=== PATIENT | female | born 2000 | race African-American/Black ===

== ENCOUNTER 2018-09-20 05:33 | Emergency (ER) | payer OTHER ==
[~2018-09-20] VITALS: Ht 165.1 cm; Wt 54.5 kg
[2018-09-20 06:18] LABS: HCG UR SG 1.016 (1.003-1.030); MICROSCOPIC AUTO
[2018-09-20 06:19] LABS: CULTURE INDICATED? YES
[2018-09-20 06:37] LABS: MEAN CORPUSCULAR HEMOGLOBIN 32.6 pg (27.0-34.8); MEAN CORPUSCULAR HGB CONC 34.1 g/dL (32.4-35.8); MEAN CORPUSCULAR VOLUME 95.6 fL (80-100); MEAN PLATELET VOLUME 7.1 fL (7.4-10.4); PLATELET COUNT 354 x10^3/uL (130-400); RED BLOOD COUNT 4.16 x10^6/uL (3.82-5.3); RED CELL DISTRIBUTION WIDTH 15.6 % (9.6-15.2)
[2018-09-20 06:50] LABS: BASOPHILS # (AUTO) 0.03 x10^3/uL (0-0.3); BASOPHILS % (AUTO) 1 % (0-1); EOSINOPHILS # (AUTO) 0.16 x10^3/uL (0-0.8); EOSINOPHILS % (AUTO) 2 % (1-7); LYMPHOCYTES # (AUTO) 1.94 x10^3/uL (1-6.1); LYMPHOCYTES % (AUTO) 28 % (22-44); MD SCAN; MONOCYTES # (AUTO) 0.19 x10^3/uL (0-1.4); MONOCYTES % (AUTO) 3 % (2-9); NEUTROPHILS # (AUTO) 4.54 x10^3/uL (1.8-8.0); NEUTROPHILS % (AUTO) 66 % (42-75)
[2018-09-20] MEDS ORDERED: CEFTRIAXONE 250 MG IM ONE (07:30)
[2018-09-20] MEDS ORDERED: AZITHROMYCIN 500 MG TABLET PO ONE (07:30)
[2018-09-20 07:44] LABS: CLUE CELLS PRESENT (NONE SEEN); WET PREP WBCS FEW (FEW)
[2018-09-20] MEDS ORDERED: CEFTRIAXONE 250 MG ONE (08:09)
[2018-09-20] MEDS ORDERED: AZITHROMYCIN 250 MG TABLET ONE (08:11)
[2018-09-20] MEDS ORDERED: LIDOCAINE-MPF 1%, 5ML ONE (08:13)
[2018-09-20 08:37] VITALS: BP 96/64
== END 2018-09-20 08:41 | disposition home or self-care (01) ==
LOC: ED 06:26
DX: N83.291 Other ovarian cyst, right side (principal); N76.0 Acute vaginitis; B96.89 Other specified bacterial agents as the cause of diseases classified elsewhere; F17.200 Nicotine dependence, unspecified, uncomplicated; R05 Cough
CPT/HCPCS: 36415; 71046; 76830; 81001; 81025; 85025; 87086; 87210; 87491; 87591; 87808; 96372; 99285; J0696

== ENCOUNTER 2019-02-06 20:42 | Emergency (ER) | payer OTHER, MEDICAID ==
[~2019-02-06] VITALS: Ht 167.6 cm; Wt 58.0 kg
[2019-02-06 20:50] VITALS: BP 132/90
--- NOTE | 2019-02-06 21:20 | NUR ---
POC DISCUSSED. PT REQUESTING WATER. PT GIVEN MULTIPLE CUPS OF WATER AND ICE PER REQUEST. PT DENIES FURTHER NEEDS AT THIS TIME. CALL LIGHT ON LAP.
[2019-02-06 21:37] LABS: CULTURE INDICATED? YES; MICROSCOPIC INDICATED
[2019-02-06 21:45] LABS: HCG UR SG 1.035 (1.003-1.030)
--- NOTE | 2019-02-06 22:01 | NUR ---
PT GIVEN SOCKS AND A WARM BLANKET PER REQUEST. POC DISCUSSED. PT AWARE TBDC. PT DENIES FURTHER NEEDS AT THIS TIME.
--- NOTE | 2019-02-06 22:30 | NUR ---
PT NOT IN ROOM AT THIS TIME. SEARCH OF HALLWAYS AND BATHROOMS FOUND NO PT. PA INFORMED.
== END 2019-02-06 22:48 | disposition left against medical advice (07) ==
LOC: ED 22:00
DX: F10.129 Alcohol abuse with intoxication, unspecified (principal); N39.0 Urinary tract infection, site not specified
CPT/HCPCS: 81001; 81025; 87086; 99283

== ENCOUNTER 2019-02-23 23:31 | Emergency (ER) | payer OTHER, MEDICAID ==
[~2019-02-23] VITALS: Ht 165.1 cm; Wt 53.4 kg
[2019-02-23 23:38] VITALS: BP 121/72
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
[2019-02-23] MEDS ORDERED: DIPH,PERTUSS(ACELL),TET VAC/PF 0.5 ML IM-VACC ONE (23:51)
[2019-02-23] MEDS ORDERED: LIDOCAINE 1%-EPI 1:100K, 20ML ONE (23:52)
[2019-02-24] MEDS ORDERED: LIDOCAINE 1%-EPI 1:100K, 20ML SQ ONE
[2019-02-24] MEDS ORDERED: DIPH,PERTUSS(ACELL),TET VAC/PF 0.5 ML IM-VACC ONE
[2019-02-24] MEDS ORDERED: BACITRACIN ZINC OINT 500U/GM, 0.9 GM ONE (00:34)
[2019-02-24] MEDS ORDERED: CEPHALEXIN 500 MG CAPSULE ONE (00:47)
[2019-02-24] MEDS ORDERED: CEPHALEXIN 500 MG CAPSULE PO ONE (01:00)
[2019-02-24] MEDS ORDERED: HYDROcodone/APAP 5/325 TABLET ONE (01:04)
[2019-02-24] MEDS ORDERED: HYDROcodone/APAP 5/325 TABLET PO STA (01:06)
== END 2019-02-24 01:09 | disposition home or self-care (01) ==
LOC: ED 23:59
DX: S61.412A Laceration without foreign body of left hand, initial encounter (principal); S60.551A Superficial foreign body of right hand, initial encounter; F17.210 Nicotine dependence, cigarettes, uncomplicated; X58.XXXA Exposure to other specified factors, initial encounter; Y93.89 Activity, other specified; Y92.413 State road as the place of occurrence of the external cause; Y99.8 Other external cause status
CPT/HCPCS: 12042; 90471; 90715; 99284

== ENCOUNTER 2019-05-25 02:48 | Emergency (ER) | payer OTHER, MEDICAID ==
[~2019-05-25] VITALS: Ht 165.1 cm; Wt 57.4 kg
--- NOTE | 2019-05-25 03:22 | NUR ---
PT. AMBULATORY TO BR WITH STEADY GAIT TO PROVIDE URINE SAMPLE.
[2019-05-25] MEDS ORDERED: CEFTRIAXONE 250 MG ONE (03:24)
[2019-05-25] MEDS ORDERED: AZITHROMYCIN 250 MG TABLET ONE (03:24)
[2019-05-25] MEDS ORDERED: AZITHROMYCIN 500 MG TABLET PO ONE (03:30)
[2019-05-25] MEDS ORDERED: CEFTRIAXONE 250 MG IM ONE (03:30)
[2019-05-25 03:37] LABS: BASOPHILS # (AUTO) 0.08 x10^3/uL (0-0.1); BASOPHILS % (AUTO) 1 % (0-1); EOSINOPHILS # (AUTO) 0.22 x10^3/uL (0-0.4); EOSINOPHILS % (AUTO) 3 % (1-7); LYMPHOCYTES # (AUTO) 2.32 x10^3/uL (1-3.4); LYMPHOCYTES % (AUTO) 31 % (22-44); MD NO; MEAN CORPUSCULAR HEMOGLOBIN 32.8 pg (27.0-34.8); MEAN CORPUSCULAR HGB CONC 33.3 g/dL (32.4-35.8); MEAN CORPUSCULAR VOLUME 98.4 fL (80-100); MONOCYTES # (AUTO) 0.43 x10^3/uL (0.2-0.8); MONOCYTES % (AUTO) 6 % (2-9); NEUTROPHILS # (AUTO) 4.41 x10^3/uL (1.8-6.8); NEUTROPHILS % (AUTO) 59 % (42-75); PLATELET COUNT 343 x10^3/uL (130-400); RED BLOOD COUNT 4.13 x10^6/uL (3.82-5.3); RED CELL DISTRIBUTION WIDTH 14.4 % (9.6-15.2)
--- NOTE | 2019-05-25 03:40 | NUR ---
PT. MEDICATED PER MAR. LABS WERE DRAWN. URINE SENT TO LAB. READY FOR PELVIC EXAM.
[2019-05-25 03:46] LABS: ANION GAP 7 mmol/L (5-15); CALCIUM 8.7 mg/dL (8.5-10.1); CHLORIDE 106 mmol/L (98-107)
[2019-05-25 03:46] LABS: HCG UR SG 1.019 (1.003-1.030); MICROSCOPIC NOT IND
[2019-05-25 03:47] LABS: ALBUMIN 3.9 g/dL (3.4-5.0)
[2019-05-25 03:47] LABS: CULTURE INDICATED? NO
--- NOTE | 2019-05-25 03:50 | NUR ---
WESLEY GARCIA AT BS FOR PELVIC EXAM.
[2019-05-25 05:15] VITALS: BP 106/64
== END 2019-05-25 05:18 | disposition home or self-care (01) ==
LOC: ED 04:02
DX: O98.312 Other infections with a predominantly sexual mode of transmission complicating pregnancy, second trimester (principal); Z3A.01 Less than 8 weeks gestation of pregnancy; F17.200 Nicotine dependence, unspecified, uncomplicated
CPT/HCPCS: 36415; 80048; 81003; 81025; 82040; 85025; 86592; 87491; 87591; 96372; 99283; J0696

== ENCOUNTER 2019-08-03 13:25 | Emergency (ER) | payer OTHER, MEDICAID ==
[~2019-08-03] VITALS: Ht 165.1 cm; Wt 54.0 kg
[2019-08-03 14:25] LABS: BASOPHILS # (AUTO) 0.03 x10^3/uL (0-0.1); BASOPHILS % (AUTO) 1 % (0-1); EOSINOPHILS # (AUTO) 0.09 x10^3/uL (0-0.4); EOSINOPHILS % (AUTO) 2 % (1-7); LYMPHOCYTES # (AUTO) 1.06 x10^3/uL (1-3.4); LYMPHOCYTES % (AUTO) 21 % (22-44); MD NO; MEAN CORPUSCULAR HEMOGLOBIN 33.6 pg (27.0-34.8); MEAN CORPUSCULAR HGB CONC 34.4 g/dL (32.4-35.8); MEAN CORPUSCULAR VOLUME 97.7 fL (80-100); MEAN PLATELET VOLUME 6.8 fL (7.4-10.4); MONOCYTES # (AUTO) 0.24 x10^3/uL (0.2-0.8); MONOCYTES % (AUTO) 5 % (2-9); NEUTROPHILS # (AUTO) 3.64 x10^3/uL (1.8-6.8); NEUTROPHILS % (AUTO) 72 % (42-75); PLATELET COUNT 329 x10^3/uL (130-400); RED BLOOD COUNT 3.88 x10^6/uL (3.82-5.3); RED CELL DISTRIBUTION WIDTH 12.6 % (9.6-15.2)
--- NOTE | 2019-08-03 14:28 | NUR ---
PT PRESENTS TO ED WITH C/O N/V AND UTERINE CRAMPING/PAIN PRESENT FOR LAST 6 WEEKS. PT IS NAUSEATED BUT NOT VOMITING AT THIS TIME. PT DENIES VAGINAL BLEEDING OR DISCHARGE. PT A&O, RESPS EVEN AND UNLABORED. PT INSTRUCTED TO PROVIDE CLEAN CATCH UA, SUPPLIES PROVIDED. PT UP TO BATHROOM AT THIS TIME, GAIT STEADY.
[2019-08-03 14:34] LABS: ALANINE AMINOTRANSFERASE 14 U/L (12-78); ALBUMIN 3.4 g/dL (3.4-5.0); ANION GAP 7 mmol/L (5-15); CALCIUM 8.7 mg/dL (8.5-10.1); CHLORIDE 106 mmol/L (98-107); CREATININE 0.75 mg/dL (0.55-1.02)
[2019-08-03 14:37] LABS: ALKALINE PHOSPHATASE 48 U/L (45-117); BILIRUBIN,TOTAL 0.5 mg/dL (0.2-1.0); TOTAL PROTEIN 7.3 g/dL (6.4-8.2)
--- NOTE | 2019-08-03 14:45 | NUR ---
report given to GARCÍA Badillo.
[2019-08-03 14:47] LABS: CULTURE INDICATED? NO; MICROSCOPIC NOT IND
[2019-08-03 15:02] VITALS: BP 97/68
--- NOTE | 2019-08-03 15:02 | NUR ---
patient has been cleared for discharge. no noted acute distress. ambulatory without complications to waiting room. patient verbalized understanding of follow up care and self care at home.
== END 2019-08-03 15:05 | disposition home or self-care (01) ==
LOC: ED 14:19
DX: O21.9 Vomiting of pregnancy, unspecified (principal); Z3A.13 13 weeks gestation of pregnancy
CPT/HCPCS: 36415; 80053; 81003; 83690; 85025; 99283

== ENCOUNTER 2019-11-03 21:18 | Emergency (ER) | payer OTHER, MEDICAID ==
[~2019-11-03] VITALS: Ht 167.6 cm; Wt 59.9 kg
[2019-11-03] MEDS ORDERED: PREN1TAB60 PO (22:35)
== END 2019-11-03 21:32 | disposition home or self-care (01) ==
LOC: ED 21:23
DX: Z02.9 Encounter for administrative examinations, unspecified (principal)

== ENCOUNTER 2019-11-03 21:44 | Observation (INO) | payer OTHER, MEDICAID ==
[~2019-11-03] VITALS: Ht 167.6 cm; Wt 60.0 kg
[2019-11-03 22:35] LABS: AMPHETAMINE SCREEN, URINE Negative (Negative); BARBITURATE SCREEN, URINE Negative (Negative); BENZODIAZEPINE SCREEN, URINE Negative (Negative); CANNABINOID SCREEN, URINE Positive (Negative); COCAINE SCREEN, URINE Negative (Negative); METHADONE SCREEN, URINE Negative (Negative); OPIATE SCREEN, URINE Negative (Negative)
[2019-11-03] MEDS ORDERED: PREN1TAB60 PO (22:35)
[2019-11-03 22:38] LABS: MICROSCOPIC INDICATED
[2019-11-03] MEDS ORDERED: ONDANSETRON 2MG/ML, 2ML IVPush PRN (23:00)
[2019-11-03] MEDS ORDERED: PLEASE ENTER HEIGHT AND WEIGHT MC SCH (23:00)
[2019-11-03] MEDS ORDERED: LACTATED RINGERS 1,000 ML IV SCH (23:00)
[2019-11-03] MEDS ORDERED: LACTATED RINGERS 1,000 ML IVBOLUS ONE (23:00)
[2019-11-03 23:02] LABS: BASOPHILS # (AUTO) 0.02 x10^3/uL (0-0.1); BASOPHILS % (AUTO) 0 % (0-1); EOSINOPHILS # (AUTO) 0.14 x10^3/uL (0-0.4); EOSINOPHILS % (AUTO) 2 % (1-7); LYMPHOCYTES # (AUTO) 1.67 x10^3/uL (1-3.4); LYMPHOCYTES % (AUTO) 27 % (22-44); MD NO; MEAN CORPUSCULAR HEMOGLOBIN 33.1 pg (27.0-34.8); MEAN CORPUSCULAR HGB CONC 33.5 g/dL (32.4-35.8); MEAN CORPUSCULAR VOLUME 98.8 fL (80-100); MEAN PLATELET VOLUME 6.6 fL (7.4-10.4); MONOCYTES # (AUTO) 0.46 x10^3/uL (0.2-0.8); MONOCYTES % (AUTO) 7 % (2-9); NEUTROPHILS # (AUTO) 3.99 x10^3/uL (1.8-6.8); NEUTROPHILS % (AUTO) 64 % (42-75); PLATELET COUNT 350 x10^3/uL (130-400); RED BLOOD COUNT 3.27 x10^6/uL (3.82-5.3); RED CELL DISTRIBUTION WIDTH 13.5 % (9.6-15.2)
[2019-11-03 23:10] LABS: ALBUMIN 2.7 g/dL (3.4-5.0); ANION GAP 6 mmol/L (5-15); CALCIUM 8.6 mg/dL (8.5-10.1); CHLORIDE 109 mmol/L (98-107)
[2019-11-03 23:14] LABS: ALANINE AMINOTRANSFERASE 19 U/L (12-78); ALKALINE PHOSPHATASE 68 U/L (45-117); BILIRUBIN,TOTAL 0.2 mg/dL (0.2-1.0); CREATININE 0.68 mg/dL (0.55-1.02); TOTAL PROTEIN 6.4 g/dL (6.4-8.2)
[2019-11-03] MEDS ORDERED: TERBUTALINE 1 MG/ML, 1ML ONE (23:56)
[2019-11-03] MEDS ORDERED: ONDANSETRON 2MG/ML, 2ML ONE (23:56)
[2019-11-04] MEDS ORDERED: TERBUTALINE 1 MG/ML, 1ML SQ ONE
[2019-11-04] MEDS ORDERED: TERBUTALINE 1 MG/ML, 1ML IV ONE (00:30)
[2019-11-04] MEDS ORDERED: ACETAMINOPHEN 325 MG TABLET ONE (00:43)
[2019-11-04 00:46] VITALS: BP 104/60
[2019-11-04] MEDS ORDERED: ACETAMINOPHEN 325 MG TABLET PO ONE (01:00)
== END 2019-11-04 01:28 | disposition home or self-care (01) ==
LOC: LDOP 21:44 → LDIP 23:30 → UNDOADMOB 11-04
PROVIDERS: ADMIT Obstetrics & Gynecology; ATTEND Obstetrics & Gynecology
DX: O21.2 Late vomiting of pregnancy (principal); Z3A.26 26 weeks gestation of pregnancy; Z79.899 Other long term (current) drug therapy
CPT/HCPCS: 36415; 80053; 80307; 81001; 85025; 87086; 96360; 96361; 96374; 96375; 99211; G0378; J2405; J3105; J7120; G0463

== ENCOUNTER 2019-12-15 14:18 | Outpatient (CLI) | payer OTHER, MEDICAID ==
[~2019-12-15] VITALS: Ht 165.1 cm; Wt 57.7 kg
[~2019-12-15 14:18] MED LIST: PREN1TAB60 PO
[2019-12-15 15:13] LABS: MICROSCOPIC INDICATED
[2019-12-15 15:14] LABS: AMPHETAMINE SCREEN, URINE Negative (Negative); BARBITURATE SCREEN, URINE Negative (Negative); BENZODIAZEPINE SCREEN, URINE Negative (Negative); CANNABINOID SCREEN, URINE Positive (Negative); COCAINE SCREEN, URINE Negative (Negative); METHADONE SCREEN, URINE Negative (Negative); OPIATE SCREEN, URINE Negative (Negative)
[2019-12-15 15:23] VITALS: BP 106/57
[2019-12-15 15:52] LABS: ALANINE AMINOTRANSFERASE 16 U/L (12-78); ALBUMIN 2.8 g/dL (3.4-5.0); ANION GAP 8 mmol/L (5-15); CALCIUM 8.3 mg/dL (8.5-10.1); CHLORIDE 108 mmol/L (98-107); CREATININE 0.67 mg/dL (0.55-1.02)
[2019-12-15 15:54] LABS: ALKALINE PHOSPHATASE 107 U/L (45-117); BILIRUBIN,TOTAL 0.3 mg/dL (0.2-1.0); TOTAL PROTEIN 6.6 g/dL (6.4-8.2)
[2019-12-15 16:04] LABS: BASOPHILS # (AUTO) 0.02 x10^3/uL (0-0.1); BASOPHILS % (AUTO) 0 % (0-1); EOSINOPHILS # (AUTO) 0.06 x10^3/uL (0-0.4); EOSINOPHILS % (AUTO) 1 % (1-7); LYMPHOCYTES # (AUTO) 1.32 x10^3/uL (1-3.4); LYMPHOCYTES % (AUTO) 22 % (22-44); MD NO; MEAN CORPUSCULAR HEMOGLOBIN 32.3 pg (27.0-34.8); MEAN CORPUSCULAR HGB CONC 33.7 g/dL (32.4-35.8); MEAN CORPUSCULAR VOLUME 95.8 fL (80-100); MEAN PLATELET VOLUME 7.3 fL (7.4-10.4); MONOCYTES # (AUTO) 0.41 x10^3/uL (0.2-0.8); MONOCYTES % (AUTO) 7 % (2-9); NEUTROPHILS % (AUTO) 69 % (42-75); PLATELET COUNT 306 x10^3/uL (130-400); RED BLOOD COUNT 3.46 x10^6/uL (3.82-5.3)
[2019-12-15] MEDS ORDERED: MICO45CR VG (16:31)
== END 2019-12-15 16:57 | disposition home or self-care (01) ==
LOC: LDOP 14:18
PROVIDERS: ATTEND Obstetrics & Gynecology
DX: O26.893 Other specified pregnancy related conditions, third trimester (principal); R10.9 Unspecified abdominal pain; Z3A.32 32 weeks gestation of pregnancy
CPT/HCPCS: 36415; 59025; 80053; 80307; 81001; 85025; 86592; 87086; 99211; G0463

== ENCOUNTER 2020-04-18 17:02 | Inpatient (IN) | payer MEDICAID, OTHER ==
[~2020-04-18] VITALS: Ht 165.1 cm; Wt 52.5 kg
[~2020-04-18 17:02] MED LIST changes: +IBUP-1222 PO; +MICO45CR VG
--- NOTE | 2020-04-18 17:22 | NUR ---
PATIENT FEELS ABDOMINAL PAIN THAT BEGAN YESTERDAY. NO N/V, NO DIARRHEA. PATIENT HAS NO IDEA WHY, SHE HAD A CHILD THREE MONTHS AGO, NO HISTORY OF THIS. PATIENTS PAST MEDICAL HISTORY IS NONE, NO MEDS, AND NO SURGERIES.
[2020-04-18] MEDS ORDERED: CEFTRIAXONE PMX 1GM/50ML 50 ML ONE (17:42)
[2020-04-18] MEDS ORDERED: ONDANSETRON 2MG/ML, 2ML ONE (17:42)
[2020-04-18] MEDS ORDERED: ACETAMINOPHEN 500 MG TABLET ONE (17:43)
[2020-04-18] MEDS ORDERED: MORPHINE SULFATE 4 MG/ML, 1ML ONE ×2 (17:43→18:17)
[2020-04-18] MEDS: MORPHINE SULFATE 4 MG/ML, 1ML IVPush PRN ×2 (17:46→18:19)
--- NOTE | 2020-04-18 17:46 | NUR ---
cultures drawn x2 then started abx
[2020-04-18] MEDS ORDERED: SODIUM CHLORIDE FLUSH 10ML SYR IVF ONE (18:00)
[2020-04-18] MEDS ORDERED: CEFTRIAXONE PMX 1GM/50ML 50 ML IVPB ONE (18:00)
[2020-04-18] MEDS ORDERED: ONDANSETRON 2MG/ML, 2ML IVPush ONE (18:00)
[2020-04-18] MEDS ORDERED: SODIUM CHLORIDE 0.9% 1,000ML IVBOLUS ONE ×2 (18:00→21:00)
[2020-04-18] MEDS ORDERED: ACETAMINOPHEN 500 MG TABLET PO ONE (18:00)
[2020-04-18 18:02] LABS: BASOPHILS # (AUTO) 0.01 x10^3/uL (0-0.1); BASOPHILS % (AUTO) 0 % (0-1); EOSINOPHILS % (AUTO) 0 % (1-7); LYMPHOCYTES # (AUTO) 0.97 x10^3/uL (1-3.4); LYMPHOCYTES % (AUTO) 6 % (22-44); MD NO; MEAN CORPUSCULAR HEMOGLOBIN 30.4 pg (27.0-34.8); MEAN CORPUSCULAR HGB CONC 33.4 g/dL (32.4-35.8); MEAN CORPUSCULAR VOLUME 91.1 fL (80-100); MEAN PLATELET VOLUME 7.2 fL (7.4-10.4); MONOCYTES # (AUTO) 0.39 x10^3/uL (0.2-0.8); MONOCYTES % (AUTO) 2 % (2-9); NEUTROPHILS # (AUTO) 16.08 x10^3/uL (1.8-6.8); NEUTROPHILS % (AUTO) 92 % (42-75); PLATELET COUNT 377 x10^3/uL (130-400); RED BLOOD COUNT 4.47 x10^6/uL (3.82-5.3); RED CELL DISTRIBUTION WIDTH 14.2 % (9.6-15.2)
[2020-04-18 18:16] LABS: ALANINE AMINOTRANSFERASE 22 U/L (12-78); ANION GAP 7 mmol/L (5-15); CALCIUM 9.4 mg/dL (8.5-10.1); CHLORIDE 105 mmol/L (98-107); CREATININE 1.04 mg/dL (0.55-1.02)
--- NOTE | 2020-04-18 18:17 | NUR ---
helped patient to bathroom to void. sent urine, clean catch. clear yellow. remains in pain, will remedicate
[2020-04-18 18:18] LABS: ALKALINE PHOSPHATASE 72 U/L (45-117); BILIRUBIN,TOTAL 0.6 mg/dL (0.2-1.0); TOTAL PROTEIN 9.1 g/dL (6.4-8.2)
--- NOTE | 2020-04-18 18:20 | NUR ---
patient continues to have pain 8 of 10 abdomen. gave second dose morphine. on monitor, in bed, vss.
[2020-04-18 18:25] LABS: MICROSCOPIC INDICATED
--- NOTE | 2020-04-18 18:37 | NUR ---
patient taken to ct scan. she states pain improved.
[2020-04-18] MEDS ORDERED: OMNIPAQUE 350 MG/ML, 100ML BOTTLE ONE (18:58)
--- NOTE | 2020-04-18 19:07 | NUR ---
bedside report given to patti patient back from ct pain improved
--- NOTE | 2020-04-18 19:52 | NUR ---
PT SLEEPING ON GURNEY, NO DISTRESS NOTED, VSS. ROOM SET UP FOR PELVIC EXAM FOR [facility] [employer].
[2020-04-18] MEDS ORDERED: DOXYCYCLINE 100 MG in DEXTROSE 5% 250 ML IV SCH (20:30)
[2020-04-18] MEDS ORDERED: HYDROmorphone 2 MG/ML, 1ML IVPush PRN (20:30)
[2020-04-18 20:45] LABS: WET PREP WBCS MANY (FEW)
[2020-04-18 20:46] LABS: CLUE CELLS NONE SEEN (NONE SEEN)
[2020-04-18] MEDS ORDERED: HYDROmorphone 1 MG/ML, 1ML INJ ONE (20:52)
--- NOTE | 2020-04-18 21:06 | NUR ---
PT MEDICATED FOR PAIN, IV ABX INFUSING AT THIS TIME. VSS AND AWAITING BED FOR ADMIT.
[2020-04-18] MEDS ORDERED: metroNIDAZOLE 500 MG TABLET PO SCH (21:30)
[2020-04-18 22:25] VITALS: BP 96/63
[2020-04-18] MEDS ORDERED: morphine SULFATE 10 MG/ML, 1ML IVPush PRN (23:30)
[2020-04-18] MEDS ORDERED: TRAZODONE 50MG TABLET PO PRN (23:30)
[2020-04-18] MEDS ORDERED: hydrALAzine 20 MG/ML, 1ML IVPush PRN (23:30)
[2020-04-18] MEDS ORDERED: CEFTRIAXONE PMX 1GM/50ML 50 ML IV SCH (23:30)
[2020-04-18] MEDS ORDERED: ACETAMINOPHEN 325 MG TABLET PO PRN (23:30)
[2020-04-19 00:48] VITALS: BP 93/57
[2020-04-19] MEDS ORDERED: POTASSIUM CHLORIDE 20 MEQ TAB.ER.PRT PO ONE (01:00)
[2020-04-19] MEDS ORDERED: metroNIDAZOLE 500 MG TABLET PO ONE (04:00)
[2020-04-19] MEDS ORDERED: metroNIDAZOLE 250 MG TABLET PO ONE (04:00)
[2020-04-19 05:42] LABS: BASOPHILS # (AUTO) 0.04 x10^3/uL (0-0.1); BASOPHILS % (AUTO) 0 % (0-1); EOSINOPHILS # (AUTO) 0.09 x10^3/uL (0-0.4); EOSINOPHILS % (AUTO) 1 % (1-7); LYMPHOCYTES # (AUTO) 1.71 x10^3/uL (1-3.4); LYMPHOCYTES % (AUTO) 12 % (22-44); MD NO; MEAN CORPUSCULAR HEMOGLOBIN 30.4 pg (27.0-34.8); MEAN CORPUSCULAR HGB CONC 33.1 g/dL (32.4-35.8); MEAN PLATELET VOLUME 7.3 fL (7.4-10.4); MONOCYTES # (AUTO) 0.59 x10^3/uL (0.2-0.8); MONOCYTES % (AUTO) 4 % (2-9); NEUTROPHILS # (AUTO) 11.32 x10^3/uL (1.8-6.8); NEUTROPHILS % (AUTO) 82 % (42-75); PLATELET COUNT 345 x10^3/uL (130-400); RED BLOOD COUNT 4.01 x10^6/uL (3.82-5.3)
[2020-04-19 05:46] LABS: CHLORIDE 109 mmol/L (98-107)
[2020-04-19 06:02] LABS: ANION GAP 7 mmol/L (5-15); CALCIUM 9.2 mg/dL (8.5-10.1); CREATININE 0.83 mg/dL (0.55-1.02)
[2020-04-19 07:05] VITALS: BP 100/64
[2020-04-19] MEDS: DOXYCYCLINE 100MG TABLET PO SCH ×2 (08:09→19:52)
[2020-04-19] MEDS: SENNA/DOCUSATE TABLET PO SCH (08:09)
[2020-04-19 12:46] VITALS: BP 97/61
[2020-04-19] MEDS: OXYcodone/APAP 5/325MG TABLET PO PRN ×2 (13:56→21:31)
[2020-04-19 18:43] VITALS: BP 100/64
[2020-04-19] MEDS: ONDANSETRON 2MG/ML, 2ML IVPush PRN (21:35)
[2020-04-20 00:21] VITALS: BP 104/63
[2020-04-20] MEDS: OXYcodone/APAP 5/325MG TABLET PO PRN (04:33)
[2020-04-20 05:37] LABS: ANION GAP 6 mmol/L (5-15); CHLORIDE 107 mmol/L (98-107); CREATININE 0.75 mg/dL (0.55-1.02)
[2020-04-20 05:56] LABS: BASOPHILS # (AUTO) 0.02 x10^3/uL (0-0.1); BASOPHILS % (AUTO) 0 % (0-1); EOSINOPHILS # (AUTO) 0.23 x10^3/uL (0-0.4); EOSINOPHILS % (AUTO) 3 % (1-7); LYMPHOCYTES # (AUTO) 1.79 x10^3/uL (1-3.4); LYMPHOCYTES % (AUTO) 22 % (22-44); MD NO; MEAN CORPUSCULAR HEMOGLOBIN 30.1 pg (27.0-34.8); MEAN CORPUSCULAR HGB CONC 32.7 g/dL (32.4-35.8); MEAN CORPUSCULAR VOLUME 92.1 fL (80-100); MEAN PLATELET VOLUME 7.2 fL (7.4-10.4); MONOCYTES # (AUTO) 0.49 x10^3/uL (0.2-0.8); MONOCYTES % (AUTO) 6 % (2-9); NEUTROPHILS # (AUTO) 5.49 x10^3/uL (1.8-6.8); NEUTROPHILS % (AUTO) 68 % (42-75); PLATELET COUNT 353 x10^3/uL (130-400); RED BLOOD COUNT 3.86 x10^6/uL (3.82-5.3); RED CELL DISTRIBUTION WIDTH 14.1 % (9.6-15.2)
[2020-04-20 06:04] LABS: HCT (SEDRATE) 35.6 % (34.6-47.8)
[2020-04-20] MEDS: DOXYCYCLINE 100MG TABLET PO SCH (09:03)
[2020-04-20] MEDS: SENNA/DOCUSATE TABLET PO SCH (09:04)
[2020-04-20] MEDS: ONDANSETRON 2MG/ML, 2ML IVPush PRN (10:29)
[2020-04-20] MEDS ORDERED: METR500T PO (12:25)
[2020-04-20] MEDS ORDERED: ACET325T26 PO (12:25)
[2020-04-20] MEDS ORDERED: DOXY100T PO (12:25)
[2020-04-20] MEDS ORDERED: ONDA4TAB7 PO (13:52)
== END 2020-04-20 14:10 | disposition home or self-care (01) | DRG 872 ==
LOC: ED 18:29 → EDIP 20:33 → 3N 22:39 → DCLOUNGE 04-20 14:00
PROVIDERS: ADMIT Family Medicine; ATTEND Hospitalist
DX: A41.9 Sepsis, unspecified organism (principal); E87.6 Hypokalemia; F12.90 Cannabis use, unspecified, uncomplicated; N73.9 Female pelvic inflammatory disease, unspecified; N76.0 Acute vaginitis; F32.9 Major depressive disorder, single episode, unspecified; F41.9 Anxiety disorder, unspecified; Z82.0 Family history of epilepsy and other diseases of the nervous system; Z88.0 Allergy status to penicillin; Z91.19 Patient's noncompliance with other medical treatment and regimen
CPT/HCPCS: 36415; 71045; 74177; 80048; 80053; 81001; 83605; 84145; 85025; 85651; 87040; 87070; 87086; 87147; 87205; 87210; 87491; 87591; 87808; 93005; G0378; J0696; J1170; J2405; J7060; Q9967; J2270; J7030

== ENCOUNTER 2020-08-26 11:37 | Emergency (ER) | payer MEDICAID ==
[~2020-08-26] VITALS: Ht 165.1 cm; Wt 50.5 kg
[~2020-08-26 11:37] MED LIST changes: +ACET325T26 PO; +DOXY100T PO; +METR500T PO; +ONDA4TAB7 PO
[2020-08-26 11:40] VITALS: BP 105/58
--- NOTE | 2020-08-26 12:25 | NUR ---
Patient given discharge instructions and they have confirmed that they understand the instructions. Patient ambulatory with steady gait.
== END 2020-08-26 12:26 | disposition home or self-care (01) ==
LOC: ED 12:10
DX: L02.31 Cutaneous abscess of buttock (principal); F17.200 Nicotine dependence, unspecified, uncomplicated
CPT/HCPCS: 99282

== ENCOUNTER 2020-09-25 18:18 | Emergency (ER) | payer MEDICAID, OTHER ==
[~2020-09-25] VITALS: Ht 162.6 cm; Wt 49.4 kg
[2020-09-25] MEDS ORDERED: ONDANSETRON 2MG/ML, 2ML IVPush ONE (19:00)
[2020-09-25] MEDS ORDERED: SODIUM CHLORIDE FLUSH 10ML SYR IVF ONE (19:00)
[2020-09-25 19:18] LABS: MICROSCOPIC INDICATED
[2020-09-25 19:23] LABS: BASOPHILS % (AUTO) 0 % (0-1); EOSINOPHILS % (AUTO) 1 % (1-7); LYMPHOCYTES % (AUTO) 13 % (22-44); MEAN CORPUSCULAR HEMOGLOBIN 31.5 pg (27.0-34.8); MEAN CORPUSCULAR HGB CONC 33.4 g/dL (32.4-35.8); MONOCYTES % (AUTO) 6 % (2-9); NEUTROPHILS % (AUTO) 81 % (42-75); PLATELET COUNT 378 x10^3/uL (130-400); RED BLOOD COUNT 4.03 x10^6/uL (3.82-5.3)
[2020-09-25 19:28] LABS: ALANINE AMINOTRANSFERASE 22 U/L (12-78); ALBUMIN 3.8 g/dL (3.4-5.0); ANION GAP 7 mmol/L (5-15); CALCIUM 9.2 mg/dL (8.5-10.1); CHLORIDE 103 mmol/L (98-107); CREATININE 0.72 mg/dL (0.55-1.02)
[2020-09-25 19:32] LABS: ALKALINE PHOSPHATASE 95 U/L (45-117); BILIRUBIN,TOTAL 0.4 mg/dL (0.2-1.0); TOTAL PROTEIN 8.6 g/dL (6.4-8.2)
[2020-09-25 19:37] LABS: MD NO
--- NOTE | 2020-09-25 20:00 | NUR ---
pt to room from lobby
[2020-09-25] MEDS ORDERED: ONDANSETRON 2MG/ML, 2ML ONE (20:26)
[2020-09-25] MEDS ORDERED: MORPHINE SULFATE 4 MG/ML, 1ML ONE ×2 (20:26→22:06)
[2020-09-25] MEDS: MORPHINE SULFATE 4 MG/ML, 1ML IVPush PRN ×2 (20:35→22:08)
[2020-09-25] MEDS ORDERED: OMNIPAQUE 350 MG/ML, 100ML BOTTLE ONE (21:37)
[2020-09-25 23:55] VITALS: BP 120/69
--- NOTE | 2020-09-26 00:32 | NUR ---
PT PROVIDED WITH [facility]. PT WALKING TO [facility] AT DISCHARGE TO FILL PRESCRIPTIONS. PT VSS. STEADY GAIT. VERBALIZED UNDERSTANDING OF FOLLOW UP INSTRUCTIONS.
== END 2020-09-26 00:34 | disposition home or self-care (01) ==
LOC: ED 21:03
DX: N83.291 Other ovarian cyst, right side (principal); R10.31 Right lower quadrant pain; R07.81 Pleurodynia
CPT/HCPCS: 36415; 71045; 74177; 76830; 80053; 81001; 83690; 84703; 85025; 87086; 96374; 96375; 96376; 99285; J2270; J2405; Q9967

== ENCOUNTER 2020-10-11 02:38 | Emergency (ER) | payer OTHER, MEDICAID ==
[~2020-10-11] VITALS: Ht 162.6 cm; Wt 48.6 kg
--- NOTE | 2020-10-11 02:55 | NUR ---
UPON ARRIVAL PT. SHOUTING AT THIS RN. "GET ME AN IV NOW! GET ME PAIN MEDS, I CAN'T TAKE THIS. I CAN'T KEEP ANYTHING DOWN!!". PT. STATES SHE DOES NOT HAVE ANYONE WHO CAN COME GET HER CHILD FOR HER DURING HER ER VISIT. EDUCATED PT. ABOUT HOW NARCOTIC PAIN MEDS CAN NOT BE ADMINISTERED SHE NEEDS TO BE ABLE TO CARE FOR HER CHILD. PT. VERBALLY AGRESSIVE WITH THIS RN.
[2020-10-11] MEDS ORDERED: ONDANSETRON 2MG/ML, 2ML ONE (02:58)
[2020-10-11] MEDS ORDERED: MORPHINE SULFATE 4 MG/ML, 1ML IVPush PRN (03:00)
[2020-10-11] MEDS ORDERED: ONDANSETRON 2MG/ML, 2ML IVPush ONE (03:00)
[2020-10-11] MEDS ORDERED: MAALOX/HYOSCYAMINE/LIDOCAINE 45 ML BTL ONE (03:14)
[2020-10-11 03:15] LABS: BASOPHILS % (AUTO) 0 % (0-1); EOSINOPHILS % (AUTO) 2 % (1-7); LYMPHOCYTES % (AUTO) 17 % (22-44); MEAN CORPUSCULAR HEMOGLOBIN 30.7 pg (27.0-34.8); MEAN CORPUSCULAR HGB CONC 33.3 g/dL (32.4-35.8); MEAN PLATELET VOLUME 6.3 fL (7.4-10.4); MONOCYTES % (AUTO) 4 % (2-9); NEUTROPHILS % (AUTO) 77 % (42-75); PLATELET COUNT 728 x10^3/uL (130-400); RED BLOOD COUNT 4.24 x10^6/uL (3.82-5.3); RED CELL DISTRIBUTION WIDTH 13.3 % (9.6-15.2)
[2020-10-11 03:18] LABS: MD NO
--- NOTE | 2020-10-11 03:21 | NUR ---
PT. MEDICATED PER MARIA LUISA. IVF INFUSING. X-RAY COMPLETED AND LABS WERE DRAWN WITH IV START. REPORT TO GARCÍA WILLS TO ASSUME CARE OF PT. AT THIS TIME.
[2020-10-11] MEDS ORDERED: MAALOX/HYOSCYAMINE/LIDOCAINE 45 ML BTL PO ONE (03:30)
[2020-10-11] MEDS ORDERED: SODIUM CHLORIDE 0.9% 1,000ML IVBOLUS ONE (03:30)
[2020-10-11 03:53] LABS: ANION GAP 7 mmol/L (5-15); BILIRUBIN,TOTAL 0.3 mg/dL (0.2-1.0); CALCIUM 9.4 mg/dL (8.5-10.1); CHLORIDE 105 mmol/L (98-107); CREATININE 0.82 mg/dL (0.55-1.02)
[2020-10-11 03:54] LABS: ALANINE AMINOTRANSFERASE 25 U/L (12-78); ALBUMIN 3.4 g/dL (3.4-5.0); ALKALINE PHOSPHATASE 104 U/L (45-117); TOTAL PROTEIN 9.2 g/dL (6.4-8.2)
[2020-10-11] MEDS ORDERED: ACETAMINOPHEN 500 MG TABLET ONE (04:10)
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
[2020-10-11] MEDS ORDERED: ACETAMINOPHEN 500 MG TABLET PO ONE (04:30)
[2020-10-11 05:06] VITALS: BP 107/55
== END 2020-10-11 05:42 | disposition other institution (70) ==
LOC: ED 03:25
DX: R11.2 Nausea with vomiting, unspecified (principal); R10.13 Epigastric pain; R10.84 Generalized abdominal pain
CPT/HCPCS: 36415; 71045; 80053; 83690; 84703; 85025; 96361; 96374; 99284; J2405; J7030